=== PATIENT | male | born 1960 | race Caucasian/White ===

== ENCOUNTER → 2020-10-25 09:48 | Outpatient (CLI) | payer OTHER, SELFPAY ==
[2020-10-25 11:07] LABS: COVID19 -Nasal RAPID POSITIVE (Negative)
== END ==
PROVIDERS: Family Provider Family Medicine; PCP Student in an Organized Health Care Education/Training Program; Visit Provider Physician Assistant
DX: U07.1 COVID-19 (principal)
CPT/HCPCS: 87635